=== PATIENT | female | born 1970 | race Caucasian/White ===

== ENCOUNTER 2017-04-03 14:48 | Emergency (ER) | payer BC ==
[2017-04-03 15:31] VITALS: BP 147/103
--- NOTE | 2017-04-03 15:35 | UC ---
Eye Complaint HPI - HPI Summary HPI Summary: 46 year old female with eye complaint. 3 days ago she started feeling like her eye lashes were itching. then the eyes were watering. she woke up this morning and her eyes were both red. the left eye is significantly more swollen and red. she denies loss or change in vision. [ End ] - History of Current Complaint Stated Complaint: EYE ITCHY/SWOLLEN Time Seen by Provider: 04/03/17 15:30 Hx Obtained From: Patient Hx Last Menstrual Period: 6-7 yrs ablation Timing: Constant Associated Signs And Symptoms: Positive: Drainage (Clear), Swelling Related History: Similar Episode - Risk Factors Acute Glaucoma Risk Factors: Negative - Allergies/Home Medications Allergies/Adverse Reactions: Allergies Allergy/AdvReac Type Severity Reaction Status Date / Time Pollen Extract Allergy Unknown Unknown Verified 04/03/17 15:31 Reaction Details Azithromycin Allergy Rash Verified 04/03/17 15:31 dogs, cats Allergy Eyes Uncoded 04/03/17 15:31 Itchy/Swollen/Red/Watery Home Medications: Home Medications Albuterol HFA INHALER* [Ventolin HFA Inhaler*] 2 puff INH Q4H PRN 04/03/17 [ History Confirmed 04/03/17] Verapamil TAB* [Calan TAB*] 120 mg PO DAILY 04/03/17 [History Confirmed 04/03/17 ] hydrOXYzine HCL TAB* [Atarax 25 MG TAB*] 25 mg PO QID PRN 04/03/17 [History Confirmed 04/03/17] PMH/Surg Hx/FS Hx/Imm Hx Previously Healthy: Yes Endocrine History: Diabetes, Dyslipidemia Respiratory History: Other - seasonal allergy Other Respiratory History: seasonal allergy and idiopathic urticaria - Surgical History Surgical History: Yes Surgery Procedure, Year, and Place: uterine ablation - Family History Known Family History: Positive: None - Social History Occupation: Employed Full-time Lives: With Family Alcohol Use: Occasionally Substance Use Type: None Smoking Status (MU): Former Smoker Review of Systems Skin: Other - urticaria Eyes: Blurred Vision, Eye Redness All Other Systems Reviewed And Are Negative: Yes Physical Exam Triage Information Reviewed: Yes Appearance: Well-Appearing, No Pain Distress, Well-Nourished Vital Signs Reviewed: Yes Eye Exam: Normal Eyes: Positive: Other: - left eye with mild injection clear discharge > right eye. no phootophobia. ENT Exam: Normal Neck: Positive: 1 Respiratory Exam: Normal Cardiovascular Exam: Normal Musculoskeletal Exam: Normal Neurological Exam: Normal Psychological Exam: Normal Skin Exam: Normal Skin: Positive: Other - urticaria inferior to the left eye from the orbit to the maxillary cheek bone . no pain with eye movement. no induration around the eye. no streaking. Eye Complaint Course/Dx - Course Course Of Treatment: Pt has had this is in the past and went to derm and has idiopathic urticaria and received steroids by mouth and it worked well. At this time try to use just the drops for a few days and if the itch and swelling not improved then start the medrol. she will f/u with PCp and concsider derm / optho as well. - Differential Dx/Diagnosis Differential Diagnosis/HQI/PQRI: Conjunctivitis, Corneal Abrasion Provider Diagnoses: Allergic conjunctivitis / idiopathic urticaria Discharge - Discharge Plan Condition: Good Disposition: HOME Prescriptions: Azelastine 0.05% (OPHTH)(NF) [Optivar 0.05% (NF)] 1 drop BOTH EYES BID #1 btl Methylprednisolone [Medrol Dosepak 4 MG*] 0 mg PO .SEE GISEL INSTRUCTION #1 tab Patient Education Materials: Urticaria (ED) Referrals: Ld Carter MD [Primary Care Provider] - 4 Days
== END 2017-04-03 16:17 | disposition home or self-care (01) ==
LOC: UCCORT 14:48
DX: H10.33 Unspecified acute conjunctivitis, bilateral (principal); L50.1 Idiopathic urticaria; E11.9 Type 2 diabetes mellitus without complications; E78.5 Hyperlipidemia, unspecified; Z88.1 Allergy status to other antibiotic agents; Z87.891 Personal history of nicotine dependence
CPT/HCPCS: 99212; G0463

== ENCOUNTER 2018-01-04 09:03 | Emergency (ER) | payer BC ==
[2018-01-04 09:29] VITALS: BP 144/87
--- NOTE | 2018-01-04 09:53 | UC ---
Dental HPI - HPI Summary HPI Summary: History of dental decay and fractures, due to not seeking dental care since experience of traumatic wisdom teeth extraction. No particular concern until sudden onset of right facial pain and swelling which began yesterday. - History of Current Complaint Chief Complaint: UCDentalProblem Stated Complaint: ORAL COMPLAINT Time Seen by Provider: 01/04/18 09:39 Hx Obtained From: Patient Hx Last Menstrual Period: s/p ablation ?: No Onset/Duration: Sudden Onset, Lasting Days - 1 Severity: Severe Pain Intensity: 8 Aggravating Factor(s): Cold, Chewing Alleviating Factor(s): OTC Meds - using acetaminophen at max dose of 3000/day in addition to meloxicam. Related History: Swelling - Allergies/Home Medications Allergies/Adverse Reactions: Allergies Allergy/AdvReac Type Severity Reaction Status Date / Time azithromycin Allergy Rash Verified 01/04/18 09:23 Home Medications: Home Medications Acetaminophen [Acetaminophen Extra Strength] 1,000 mg PO Q6H PRN 01/04/18 [ History Confirmed 01/04/18] Albuterol HFA INHALER* [Ventolin HFA Inhaler*] 1 - 2 puff INH Q4H PRN 01/04/18 [ History Confirmed 01/04/18] Atorvastatin* [Lipitor*] 20 mg PO DAILY 01/04/18 [History Confirmed 01/04/18] Canagliflozin (NF) [Invokana (NF)] 300 mg PO DAILY 01/04/18 [History Confirmed 01/04/18] Fluticasone HFA 220 mcg(NF) [Flovent HFA 220 Mcg(NF)] 2 puff INH BID PRN [History Confirmed 01/04/18] Icosapent Ethyl [Vascepa] 2 gm PO BID 01/04/18 [History Confirmed 01/04/18] LoraTADine TAB(NF) [Claritin 10 MG TAB(NF)] 10 mg PO DAILY 01/04/18 [History Confirmed 01/04/18] Meloxicam(NF) [Mobic(NF)] 15 mg PO DAILY 01/04/18 [History Confirmed 01/04/18] Pantoprazole TAB (NF) [Protonix TAB (NF)] 40 mg PO DAILY 01/04/18 [History Confirmed 01/04/18] Verapamil SR CAP* [Calan Sr CAP*] 180 mg PO DAILY 01/04/18 [History Confirmed ] metFORMIN* [Glucophage 1000 MG TAB *] 1,000 mg PO BID 01/04/18 [History Confirmed 01/04/18] PMH/Surg Hx/FS Hx/Imm Hx Endocrine History: Diabetes Cardiovascular History: Hypertension GI/ History: Gastroesophageal Reflux - Surgical History Surgical History: Yes Surgery Procedure, Year, and Place: Uterine Ablation, ~2009, [place] - Family History Known Family History: Positive: Diabetes - maternal uncle. - Social History Occupation: Employed Full-time Alcohol Use: Occasionally Substance Use Type: None Smoking Status (MU): Former Smoker Length of Time of Smoking/Using Tobacco: 1 - 1 1/2 PPD x 20 Years When Did the Patient Quit Smoking/Using Tobacco: ~2004 Review of Systems Constitutional: Fatigue - could not sleep due to ji, Other - Has not been checking blood sugars. ENT: Dental Pain Is Patient Immunocompromised?: No All Other Systems Reviewed And Are Negative: Yes Physical Exam Triage Information Reviewed: Yes Appearance: Well-Appearing, Pain Distress - moderate. Vital Signs: Initial Vital Signs Temp 98 F 01/04/18 09:21 Pulse 99 01/04/18 09:21 Resp 16 01/04/18 09:21 BP 144/87 01/04/18 09:21 Pulse Ox 99 01/04/18 09:21 Vital Signs Reviewed: Yes Eye Exam: Normal, Other - no photophobia, full rom both eyes. ENT: Positive: Pharynx normal Dental: Positive: Gross Decay/Caries @, Dental Fracture @, Abscess @ Dental Complaint Course/Dx - Course Course Of Treatment: penVK and pain control. Advised needs dental intervention PETRA. FEATURES REPORTER search # [id number] - Differential Dx/Diagnosis Differential Diagnosis/Dx: Dental Abscess, Dental Caries, Fractured Tooth, Gingivitis Provider Diagnoses: dental abscess #2 Discharge - Sign-Out/Discharge Documenting (check all that apply): Discharge/Admit/Transfer - Discharge Plan Condition: Stable Disposition: HOME Prescriptions: Hydrocodone/Acetaminophen [Hydrocodone-Acetamin 5-325 mg] 2 tab PO BID PRN #15 tablet MDD 4 PRN Reason: Pain (Dental) Penicillin VK 500 MG TAB(NF) [Penicillin VK 500 mg Tab] 500 mg PO QID #40 tab Patient Education Materials: Dental Abscess (ED) Referrals: Ld Carter MD [Primary Care Provider] - Additional Instructions: Begin penicillin for treatment of abscess. It is essential that you schedule dental follow up, because this is a short term measure only and your teeth need care. You have a prescription for hydrocodone. This contains acetaminophen, so adjust your acetaminophen to account for this. Maximum daily dose of acetaminophen is 3000mg. - Billing Disposition and Condition Condition: STABLE Disposition: HOME Images Dental: 1 - fracture, deep decay, associated abscess.
== END 2018-01-04 10:11 | disposition home or self-care (01) ==
LOC: UCCORT 09:03
DX: K04.7 Periapical abscess without sinus (principal); Z88.1 Allergy status to other antibiotic agents; E11.9 Type 2 diabetes mellitus without complications; I10 Essential (primary) hypertension; Z79.84 Long term (current) use of oral hypoglycemic drugs; K21.9 Gastro-esophageal reflux disease without esophagitis; Z87.891 Personal history of nicotine dependence
CPT/HCPCS: 99213; G0463

== ENCOUNTER 2018-03-09 16:26 | Inpatient (IN) | payer BC ==
[2018-03-09] MEDS: NS 0.9% 1000 ML* 2,000 ML IV ONE ×2 (16:56→19:16)
--- NOTE | 2018-03-09 16:57 | RAD ---
Indication: Hyperglycemia. Single frontal view of the chest performed at 1642 hours was reviewed. No prior study is available for comparison. No mediastinal shift is noted. Heart is of normal size and configuration. Minimal atelectasis is noted in the left lung base. IMPRESSION: NO ACTIVE CARDIOPULMONARY DISEASE IS NOTED.
--- NOTE | 2018-03-09 17:11 | ED ---
HPI Diabetic - HPI Summary HPI Summary: This is earl Barbour documenting for attending Roman Lee MD. Patient is a 47 y/o F w/ c/o high BG at 303. Patient is a type II diabetic diagnosed 5-6 years ago. Last week, patient felt nauseous and was vomiting. She states she went to [facility] and was admitted for DKA. She was discharged two days ago. She states she was given an IV insulin drip but did not receive insulin upon discharge. Patient claims she takes only oral medications and no insulin. She reports not feeling better after discharge and went to her PCP today. BP levels were measured to be 303 at PCP's office and she was sent to [facility]. She states she feels thirsty but does not note this to be abnormal. Patient reports increased frequency of urination and lack of appetite. She claims she has lost 12-14 lbs in past week. On triage, pain is denied and nothing is noted to aggravate/alleviate Sx. Home medications and allergies are reviewed. - History Of Current Complaint Chief Complaint: EDDiabeticProb Time Seen by Provider: 03/09/18 16:34 Hx Obtained From: Patient Hx Last Menstrual Period: s/p ablation Onset/Duration: Lasting Weeks - onset last week Timing: Constant Severity Currently: None - pain is denied Character: Alert Aggravating: Nothing Alleviating: Nothing Associated Signs & Symptoms: Nausea, Vomiting - Allergies/Home Medications Allergies/Adverse Reactions: Allergies Allergy/AdvReac Type Severity Reaction Status Date / Time azithromycin Allergy Rash Verified 03/09/18 17:12 Home Medications: Home Medications Famotidine 40 mg PO BID 03/09/18 [History Confirmed 03/09/18] Losartan/Hydrochlorothiazide [Losartan Potassium/Hydroc 100-25 mg] 1 tab PO DAILY 03/09/18 [History Confirmed 03/09/18] Metoprolol Tartrate TAB* [Lopressor TAB*] 25 mg PO BID 03/09/18 [History Confirmed 03/09/18] Nystatin/Triamcin [Nystatin-Triamcinolone Ointm] 1 applic TOPICAL TID 03/09/18 [ History Confirmed 03/09/18] glipiZIDE [Glipizide] 10 mg PO DAILY 03/09/18 [History Confirmed 03/09/18] PMH/Surg Hx/FS Hx/Imm Hx Endocrine/Hematology History: Reports: Hx Diabetes Cardiovascular History: Reports: Hx Hypertension Sensory History: Denies: Hx Legally Blind - Surgical History Surgery Procedure, Year, and Place: Uterine Ablation, ~2009, [place] Infectious Disease History: No Infectious Disease History: Denies: Traveled Outside the [place] in Last 30 Days - Family History Known Family History: Positive: Diabetes - maternal uncle. - Social History Alcohol Use: Occasionally Substance Use Type: Reports: None Smoking Status (MU): Former Smoker Length of Time of Smoking/Using Tobacco: 1 - 1 1/2 PPD x 20 Years Review of Systems Positive: Other - lost 12-14 lbs in past week Positive: Vomiting, Nausea, Other - decreased appetite Positive: frequency - increased urination All Other Systems Reviewed And Are Negative: Yes Physical Exam - Summary Physical Exam Summary: VITAL SIGNS: Reviewed. GENERAL: Patient is a well-developed and nourished female who is lying comfortable in the stretcher. Patient is not in any acute respiratory distress. HEAD AND FACE: No signs of trauma. No ecchymosis, hematomas or skull depressions. No sinus tenderness. EYES: PERRLA, EOMI x 2, No injected conjunctiva, no nystagmus. EARS: Hearing grossly intact. Ear canals and tympanic membranes are within normal limits. MOUTH: Oropharynx within normal limits. Dry mouth is noted. NECK: Supple, trachea is midline, no adenopathy, no JVD, no carotid bruit, no c- spine tenderness, neck with full ROM. CHEST: Symmetric, no tenderness at palpation LUNGS: Clear to auscultation bilaterally. No wheezing or crackles. CVS: Regular rate and rhythm, S1 and S2 present, no murmurs or gallops appreciated. ABDOMEN: Soft, non-tender. No signs of distention. No rebound no guarding, and no masses palpated. Bowel sounds are normal. EXTREMITIES: FROM in all major joints, no edema, no cyanosis or clubbing. NEURO: Alert and oriented x 3. No acute neurological deficits. Speech is normal and follows commands. SKIN: Dry and warm Triage Information Reviewed: Yes Vital Signs On Initial Exam: Initial Vitals Temp Pulse Resp BP Pulse Ox 96.8 F 130 16 95/78 99 03/09/18 16:28 03/09/18 16:28 03/09/18 16:28 07/30/18 16:28 03/09/18 16:28 Vital Signs Reviewed: Yes Diagnostics - Vital Signs Vital Signs Temp Pulse Resp BP Pulse Ox 03/09/18 16:28 96.8 F 130 16 95/78 99 - Laboratory Result Diagrams: 03/09/18 17:01 03/10/18 04:15 Lab Statement: Any lab studies that have been ordered have been reviewed, and results considered in the medical decision making process. - Radiology CXR Xray Interpretation: No Acute Changes Radiology Interpretation Completed By: Radiologist - No active cardiopulmonary disease is noted. This report is reviewed by ED physician. Diabetic Course/Dx - Course Assessment/Plan: Patient is a 47 y/o F w/ c/o high BG at 303. Patient is a type II diabetic diagnosed 5-6 years ago. Last week, patient felt nauseous and was vomiting. She states she went to [facility] and was admitted for DKA. She was discharged two days ago. She states she was given an IV insulin drip but did not receive insulin upon discharge. Patient claims she takes only oral medications and no insulin. She reports not feeling better after discharge and went to her PCP today. BP levels were measured to be 303 at PCP's office and she was sent to [facility]. She states she feels thirsty but does not note this to be abnormal. Patient reports increased frequency of urination and lack of appetite. She claims she has lost 12-14 lbs in past week. On triage, pain is denied and nothing is noted to aggravate/alleviate Sx. Home medications and allergies are reviewed. Blood test results without any significant abnormality except for what was a count of 13, hemoglobin 17.5, hematocrit of 51 which may be due to the patient has hemoconcentration. Sodium is 129, carbon dioxide is 15 , anion gap is 21, BUNs 25 and creatinine 1.19. The glucose is 429. This is significant for DKA. Patient was given 2 L of IV fluids and the patient was placed in an insulin drip. The patient continued to be hemodynamically stable. I discussed the case with Dr. Renteria from the hospitalist services and he agreed to admit the patient to the ICU services. Patient is alert and oriented 3. - Diagnoses Differential Dx: Diabetic Ketoacidosis, Hyperglycemia, Hyperosmolar State Provider Diagnoses: DKA (diabetic ketoacidoses) - Physician Notifications Discussed Care Of Patient With: Nathan Renteria Time Discussed With Above Provider: 18:42 Instructed by Provider To: Other - Dr. Renteria was consulted on the patient's case at 18:42. Dr. Renteria agrees to admit patient to [facility]. - Critical Care Time Critical Care Time: 75-104 min Discharge - Sign-Out/Discharge Documenting (check all that apply): Patient Departure - admit - Discharge Plan Condition: Good Disposition: ADMITTED TO [facility] - Billing Disposition and Condition Condition: GOOD Disposition: Admitted to [facility]
[2018-03-09 17:12] LABS: ABS Basophils 0 10^3/ul (0-0.2); ABS Eosinophils 0 10^3/ul (0-0.6); ABS Lymphocytes 2.1 10^3/ul (1.0-4.8); ABS Monocytes 1.3 10^3/ul (0-0.8); ABS Neutrophils 9.5 10^3/ul (1.5-7.7); ABS Nucleated RBC 0 10^3/ul; Eosinophil % 0.2 % (0-6); Hematocrit 51 % (35-47); Hemoglobin 17.5 g/dl (12.0-16.0); Lymphocyte % 16.3 % (25-47); Mean Corpuscular HGB Conc 34 g/dl (31-36); Mean Corpuscular Hemoglobin 32 pg (27-31); Mean Corpuscular Volume 92 fL (80-97); Mean Platelet Volume 7.1 um3 (7.4-10.4); Nucleated Red Blood Cells % 0.1; Platelet Count 408 10^3/ul (150-450); Red Blood Count 5.51 10^6/ul (4.00-5.40); Red Cell Distribution Width 15 % (10.5-15)
[2018-03-09 17:28] LABS: EGFR Non-African American 49.1 (>60)
[2018-03-09] MEDS ORDERED: Insulin IVPB 100 units/100 ml 100 UNITS/100 ML UNIT IVPB ONE ×2 (18:18→20:17)
[2018-03-09 20:31] LABS: EGFR Non-African American 64.4 (>60)
[2018-03-09] MEDS ORDERED: NS 0.9% w/ 20 Meq KCL 1000 ML* 1,000 ML IV SCH (21:00)
[2018-03-09] MEDS ORDERED: Metoprolol Tartrate TAB* 25 MG PO SCH (21:00)
[2018-03-09] MEDS: Famotidine TAB* 20 MG PO SCH (21:02)
[2018-03-09] MEDS: D5W 1/2 NS KCl 20 Meq 1000 ML* 1,000 ML IV SCH (21:04)
[2018-03-09 21:23] LABS: Urine Appearance Cloudy; Urine Blood 1+ (Negative); Urine Color Straw; Urine Ketones 1+ (Negative); Urine Protein Negative (Negative); Urine Red Blood Cell 1+(3-5/hpf) (Absent); Urine Specific Gravity 1.015 (1.010-1.030); Urine Urobilinogen Negative (Negative); Urine White Blood Cell 2+(11-20/hpf) (Absent)
--- NOTE | 2018-03-09 22:07 | HP ---
HISTORY AND PHYSICAL: DATE OF ADMISSION: 03/09/18. PROVIDER: Eitan Hernadez NP. ATTENDING PHYSICIAN: Dr. Cleary (report dictated by Eitan Hernadez NP). DICTATION ENDS HERE EITAN HERNADEZ NP [id number]/[facility] #: [id number] MTDD
[2018-03-09] MEDS: Heparin VIAL(*) 5000 UNITS/ML VIAL (FIVE THOUSAND) SUBCUT SCH (23:15)
[2018-03-10] MEDS ORDERED: Magnesium Sulfate 1 GM IV* 1 GM/100 ML BAG IV ONE (00:34)
--- NOTE | 2018-03-10 00:48 | HP ---
CC: Dr. Carter * HISTORY AND PHYSICAL: DATE OF ADMISSION: 03/09/18 PROVIDER: Eitan Hernadez NP ATTENDING PHYSICIAN: Dr. Cleary * (report dictated by Eitan Hernadez NP) PRIMARY CARE PROVIDER: Dr. Carter CHIEF COMPLAINT: Hyperglycemia and weakness. HISTORY OF PRESENT ILLNESS: Ms. Hilton is a 47-year-old female with a past medical history of obesity, non-insulin dependent type 2 diabetes, hypertension , and GERD, who presents to the emergency department today from her primary care provider's office for concern for hyperglycemia and weakness. The patient reports that she was recently hospitalized this past week in hospital for DKA in which she was hospitalized on last , 03/05 and was discharged on Friday, 03/07 and reports that she was treated for DKA with IV insulin. The patient reports prior to that hospitalization on 03/04, she began to feel unwell and developed acute intractable nausea and vomiting and felt so weak the next day she went to the emergency department. She initially thought she had a viral gastroenteritis. She denied abdominal pain or diarrhea. No fevers or chills. She reports that her symptoms improved during that hospitalization; however, at discharge she still did not feel 100% and reports she continued to have "fruity breath" and had some mild continued weakness that she reports worsened when she got home. She reports that she was also found to be quite hypertensive throughout that hospitalization. She reports there was no infection identified at [facility] and it was unknown what precipitated the DKA. She denies any recent fever/chills, denies any URI symptoms, denies urinary symptoms. The records from discharge from [facility] showing she was discharged with a white blood cell count to 17, CRP of 14 as well as discharge blood pressure of 180/100, it is also noted she had 2 sets of blood cultures that had no growth. Today, in the emergency department, the patient reports she doesnt feel as bad as she did when she presented to [facility] initially. In the emergency department today it is noted she has an increased anion gap of 21, blood glucose of 430, and noted to be acidotic per VBG. She was started on insulin drip and given 2 L of normal saline in the emergency department so far. On evaluation in the emergency department, the patient appears to be comfortable, alert and oriented x3, in no acute distress. She reports she already feels better since arrival to the emergency department. The patient reports prior to that her [facility] hospitalization she was at an outdoor car show in the heat, but reports that she drinks plenty of fluids. She denies excessive alcohol use or recreational drug use. She denies a history of DKA in the past. She reports her blood glucometer is broken and doesn't monitor her blood sugars. PAST MEDICAL HISTORY: 1. Non-insulin dependent type 2 diabetes. 2. Hypertension. 3. GERD. 4. Hyperlipidemia. ALLERGIES: AZITHROMYCIN. FAMILY HISTORY: Diabetes in both parents, coronary artery disease in her grandmother, aunt, and uncle. SOCIAL HISTORY: The patient currently lives at home in [place] with her and daughter. She lists her , Jean Hilton, as a healthcare proxy, his number is [phone]. REVIEW OF SYSTEMS: A 14-point review of systems was performed and all the pertinent positives and negatives are mentioned in the history of present illness. Otherwise, they are negative. PHYSICAL EXAMINATION GENERAL APPEARANCE: A 47-year-old female, overweight, in no acute distress. Good historian. VITAL SIGNS: Temperature 99.2, heart rate 102, respirations 20, O2 sat 99% on room air, blood pressure 164/93. HEENT: Head is normocephalic, atraumatic. Pupils are equal and reactive to light. Oropharynx is clear. Moist mucous membranes. NECK: Supple. LUNGS: Clear to auscultation bilaterally. Good aeration throughout. CARDIAC: S1, S2. Regular rate and rhythm. No murmur, rub, or gallop appreciated. ABDOMEN: Soft, nontender, nondistended. Normal bowel sounds throughout. EXTREMITIES: No clubbing, cyanosis, or edema. Moves all extremities equally. Strength is 5/5 throughout. NEURO: Cranial nerves II through XII are grossly intact. No focal deficits noted. PSYCH: Appropriate. LABORATORY DATA AND DIAGNOSTIC STUDIES: WBC is 13.0, RBC 5.51, HGB 17.5, HCT 51, MCV 92, MCH 32, MCHC 34, RDW 15, platelet count 405. Sodium 129, potassium 3.5, chloride 93, carbon dioxide 15, anion gap 21, BUN 25, creatinine 1.19, glucose 429. Calcium 9.8, phosphorous 4.6, magnesium 2.1, total bilirubin 1.00, AST 40, ALT 42, alkaline phosphatase 42. Total creatinine kinase 81, C- reactive protein 8.03. Total protein 7.8. Albumin 4.6. Serum alcohol less than 10. Chest x-ray, impression, "no active cardiopulmonary disease is noted." ASSESSMENT AND PLAN: Ms. Hilton is a 47-year-old female with a past medical history of non-insulin dependent type 2 diabetes, hypertension, gastroesophageal reflux disease, obesity, hyperlipidemia, who presents today from her primary care provider's office for hyperglycemia with a recent hospitalization at [facility] for diabetic ketoacidosis, who presented today from her primary care provider's office for concern for hyperglycemia and weakness found to be in diabetic ketoacidosis. 1. Diabetic ketoacidosis. The patient is in mild diabetic ketoacidosis. Repeat labs just returned showing an improvement in her anion gap, which is now down to 16. Insulin drip was started around 1700 and repeat glucose now down to 130. Her insulin was decreased from 8 units an hour down to 2 units an hour and she was started on D5W with half normal saline with 20 of KCl at 200 mL an hour. Will continue q.4 hours BMPs. She will continue fingerstick blood glucose q.1 hour. The patient is clinically stable and feeling better. It is unclear the precipitating factors behind her diabetic ketoacidosis. In review of [facility] records, her hemoglobin A1c is 6.5. There is no obvious source of infection but did have a discharge WBC of 17 and elevated CRP both now trending down. It sound like her nausea and vomiting prior to her [facility] hospitalization was secondary to the DKA but it is possible she had a viral gastroenteritis or food bourne pathogen. Urinalysis is still pending at the time of dictation. Chest x-ray is unremarkable. I have added on a thyroid panel. Per patient, she has an "enlarged thyroid," but denies history of thyroid disease as well as I have ordered a morning cortisol level and an Endocrine consult should be considered tomorrow. Drug screen is still pending at the time of dictation. I have also added on blood cultures. Even though the patient's hemoglobin A1c is only 6.5, it is possible she may need change in her medications and/or be discharged home on insulin and possibly she has been uncontrolled at home since she has not been monitoring. She will need a blood glucometer at discharge. 2. Acute kidney injury, noted elevated creatinine of 1.19, this resolved on second set of labs with IV fluids. 3. Hypertension. We will continue verapamil 180 mg p.o. daily and metoprolol tartrate 25 mg p.o. b.i.d. She is slightly hypertensive, her systolic blood pressure is in the 160s, continue to monitor. 4. Gastroesophageal reflux disease, controlled, continue Pepcid and omeprazole. 5. Hyperlipidemia, continue Lipitor. 6. DVT prophylaxis, heparin subcu. 7. Code status, full code. 8. Hospital status, inpatient ICU. 9. We will try to obtain records from [facility] of her previous hospitalization. This case was discussed with attending physician, Dr. Cleary, who agrees with the plan of care. TIME SPENT: Approximately 90 minutes were spent on this admission. EITAN HERNADEZ, GWENDOLYN [id number]/[facility] #: [id number] ESTER
[2018-03-10] MEDS: KCL 20 MEQ/100 ML IVPREMIX* 20 MEQ/100 ML BAG IV SCH ×2 (02:02→02:58)
[2018-03-10] MEDS: D5W 1/2 NS KCl 20 Meq 1000 ML* 1,000 ML IV SCH ×2 (02:58→10:08)
[2018-03-10 05:13] LABS: EGFR Non-African American 104.1 (>60)
[2018-03-10] MEDS: Heparin VIAL(*) 5000 UNITS/ML VIAL (FIVE THOUSAND) SUBCUT SCH ×3 (06:22→21:32)
[2018-03-10] MEDS ORDERED: Dextrose 50% Syringe 50 ML* 25 GM/50 ML SYRINGE IV PUSH PRN (08:25)
[2018-03-10] MEDS: Verapamil TAB* 120 MG PO SCH ×2 (08:34→17:04)
[2018-03-10] MEDS: Omeprazole CAP* 20 MG PO SCH (08:35)
[2018-03-10] MEDS: Metoprolol Tartrate TAB* 25 MG PO SCH ×2 (08:35→21:32)
[2018-03-10] MEDS: Atorvastatin* 20 MG TAB PO SCH (08:36)
[2018-03-10] MEDS: Famotidine TAB* 20 MG PO SCH (08:36)
[2018-03-10] MEDS ORDERED: Potassium Chlor TAB* 20 MEQ TAB.ER PO STA (08:43)
[2018-03-10] MEDS: Insulin GLARGINE(*) 1 UNITS UNIT SUBCUT SCH (08:51)
[2018-03-10] MEDS ORDERED: Verapamil SR CAP* 180 MG PO SCH (09:00)
[2018-03-10] MEDS ORDERED: Potassium Chloride LIQUID* 20 MEQ PACKET PO STA (09:05)
[2018-03-10 10:06] LABS: Urine Appearance Clear; Urine Blood Negative (Negative); Urine Color Straw; Urine Ketones 1+ (Negative); Urine Protein Negative (Negative); Urine Red Blood Cell Trace(0-2/hpf) (Absent); Urine Specific Gravity 1.008 (1.010-1.030); Urine Urobilinogen Negative (Negative); Urine White Blood Cell 1+(6-10/hpf) (Absent)
[2018-03-10] MEDS: Insulin LISPRO* 1 UNITS UNIT SUBCUT SCH ×2 (11:48→17:05)
[2018-03-10] MEDS: hydrALAZINE IV* 20 MG/ML VIAL IV SLOW PU PRN (14:17)
[2018-03-10] MEDS: cefTRIAXone(*) 1 GM in NS 0.9% 50 ML* 50 ML IVPB SCH (15:04)
[2018-03-10] MEDS ORDERED: NS 0.9% 500 ML* 500 ML IV ONE (16:52)
[2018-03-10 17:52] LABS: ABS Basophils 0 10^3/ul (0-0.2); ABS Eosinophils 0.1 10^3/ul (0-0.6); ABS Lymphocytes 2.3 10^3/ul (1.0-4.8); ABS Monocytes 0.8 10^3/ul (0-0.8); ABS Neutrophils 4.8 10^3/ul (1.5-7.7); ABS Nucleated RBC 0 10^3/ul; Eosinophil % 0.7 % (0-6); Hematocrit 38 % (35-47); Lymphocyte % 29.1 % (25-47); Mean Corpuscular HGB Conc 34 g/dl (31-36); Mean Corpuscular Hemoglobin 32 pg (27-31); Mean Corpuscular Volume 92 fL (80-97); Mean Platelet Volume 7.4 um3 (7.4-10.4); Nucleated Red Blood Cells % 0; Platelet Count 218 10^3/ul (150-450); Red Blood Count 4.09 10^6/ul (4.00-5.40); Red Cell Distribution Width 14 % (10.5-15)
[2018-03-10 18:14] LABS: EGFR Non-African American 163.2 (>60)
--- NOTE | 2018-03-10 19:34 | PN ---
Subjective Date of Service: 03/10/18 Interval History: Pt seen and examined. Meds and labs reviewed ROS: Denied BOWIE/dizziness, F/C, N/V, CP, SOB, increased cough, sputum production , abd pain, diarrhea, constipation, dysuria, myalgias, arthralgias, throat pain , and new skin lesions. The rest of the 14 point ROS are unremarkable. PHYSICAL EXAM: GEN APPEARANCE: Awake, not in acute distress HEENT: NC/AT, PERRLA, moist oral mucosa, (-) throat erythema NECK: Soft, supple, (-) cervical LAD, (-)JVD HEART: S1S2 WNL, RRR, No MRG CHEST: CTA, BL, GAE, No W/R/R ABD: Soft, ND/NT, NABS 4x Q EXT: No C/C/E SKIN: Warm to touch PSYCH: No active psychosis, hallucinations, depression, SI/HI Objective Active Medications: Atorvastatin Calcium (Lipitor*) 20 mg PO DAILY [facility] Last Admin: 03/10/18 08:36 Dose: 20 mg Dextrose (D50w Syringe 50 Ml*) 12.5 gm IV PUSH .FOR FS < 60 - SS PRN PRN Reason: FS < 60 Heparin Sodium (Porcine) (Heparin Vial(*)) 5,000 units SUBCUT Q8HR [facility] Last Admin: 03/10/18 14:17 Dose: 5,000 units Hydralazine HCl (Apresoline Iv*) 10 mg IV SLOW PU Q6H PRN PRN Reason: BLOOD PRESSURE Last Admin: 03/10/18 14:17 Dose: 10 mg Insulin Human Regular (Insulin Regular Ivpb) 100 units in 100 mls @ 1.696 mls/ hr IVPB PER RATE ONE Stop: 03/12/18 05:15 Last Admin: 03/09/18 20:15 Dose: 1.696 mls/hr Ceftriaxone Sodium 1 gm/ (Sodium Chloride) 50 mls @ 200 mls/hr IVPB Q24H [facility] Last Admin: 03/10/18 15:04 Dose: 200 mls/hr Insulin Glargine (Lantus(*)) 28 units SUBCUT Q24H [facility] Last Admin: 03/10/18 08:51 Dose: 28 unit Insulin Human Lispro (Humalog*) 9 units SUBCUT AC [facility] Last Admin: 03/10/18 17:05 Dose: 9 units Metoprolol Tartrate (Lopressor Tab*) 37.5 mg PO BID [facility] Last Admin: 03/10/18 08:35 Dose: 37.5 mg Omeprazole (Prilosec Cap*) 20 mg PO DAILY [facility] Last Admin: 03/10/18 08:35 Dose: 20 mg Potassium Phos/Sodium Phos (Neutra Phos 250 Mg [place]*) 250 mg PO BID [facility] Stop: 03/11/18 09:01 Verapamil HCl (Calan Tab*) 120 mg PO DAILY [facility] Last Admin: 03/10/18 08:34 Dose: 120 mg Verapamil HCl (Calan Tab*) 60 mg PO 1600 [facility] Last Admin: 03/10/18 17:04 Dose: 60 mg Vital Signs - 8 hr 03/10/18 03/10/18 03/10/18 12:00 13:00 13:35 Temperature 99.5 F Pulse Rate 88 105 97 Respiratory 25 19 24 Rate Blood Pressure 152/105 146/114 144/102 (mmHg) O2 Sat by Pulse 95 97 96 Oximetry 03/10/18 03/10/18 03/10/18 13:59 14:00 14:55 Temperature 97.7 F Pulse Rate 93 114 Respiratory 20 29 20 Rate Blood Pressure 148/112 148/73 (mmHg) O2 Sat by Pulse 96 99 Oximetry 03/10/18 15:57 Temperature 97.7 F Pulse Rate 114 Respiratory 20 Rate Blood Pressure 148/73 (mmHg) O2 Sat by Pulse 99 Oximetry Oxygen Devices in Use Now: None Result Diagrams: 03/10/18 17:40 03/10/18 19:03 Microbiology and Other Data: Microbiology 03/09/18 20:54 Urine Culture - Final Urine No Growth (<1,000 CFU/mL) 03/10/18 05:34 Nasal Screen MRSA (PCR) - Final Nasal Mrsa Not Detected Assess/Plan/Problems-Billing Assessment: - Patient Problems (1) DKA (diabetic ketoacidoses) Current Visit: Yes Status: Acute Code(s): E13.10 - OTH DIABETES MELLITUS WITH KETOACIDOSIS WITHOUT COMA SNOMED Code(s): 183440832 Comment: -Resolved -Transitioned successfully to SQ insulin -Transferred to floors -Continue FS qACHS (2) Hypertension Current Visit: Yes Status: Acute Code(s): I10 - ESSENTIAL (PRIMARY) HYPERTENSION SNOMED Code(s): 02126593 Comment: -Continue Verapamil and Metoprolol -Will place pt on PRN Hydralazine (3) GERD (gastroesophageal reflux disease) Current Visit: Yes Status: Acute Code(s): K21.9 - GASTRO-ESOPHAGEAL REFLUX DISEASE WITHOUT ESOPHAGITIS SNOMED Code(s): 582265439 Comment: -Continue Omeprazole and will D/C Famodidine (4) Hyperlipidemia Current Visit: Yes Status: Acute Code(s): E78.5 - HYPERLIPIDEMIA, UNSPECIFIED SNOMED Code(s): 80951804 Comment: -Continue Atorvastatin Status and Disposition: -For PT eval
[2018-03-10] MEDS: Potassium & Sodium Phos 250MG* = 1 PACKET PO SCH (21:31)
[2018-03-11] MEDS: Heparin VIAL(*) 5000 UNITS/ML VIAL (FIVE THOUSAND) SUBCUT SCH ×3 (05:42→20:49)
[2018-03-11] MEDS ORDERED: Potassium Chloride LIQUID* 20 MEQ PACKET PO ONE (07:44)
[2018-03-11 07:48] LABS: Hematocrit 47 % (35-47); Hemoglobin 15.9 g/dl (12.0-16.0); Mean Corpuscular HGB Conc 34 g/dl (31-36); Mean Corpuscular Hemoglobin 32 pg (27-31); Mean Corpuscular Volume 93 fL (80-97); Mean Platelet Volume 7.5 um3 (7.4-10.4); Platelet Count 288 10^3/ul (150-450); Red Blood Count 5.03 10^6/ul (4.00-5.40); Red Cell Distribution Width 14 % (10.5-15); White Blood Count 7.5 10^3/ul (3.5-10.8)
[2018-03-11 08:17] LABS: EGFR Non-African American 139.9 (>60)
[2018-03-11] MEDS: Potassium & Sodium Phos 250MG* = 1 PACKET PO SCH (08:47)
[2018-03-11] MEDS: Metoprolol Tartrate TAB* 25 MG PO SCH ×2 (08:48→20:51)
[2018-03-11] MEDS: Omeprazole CAP* 20 MG PO SCH (08:49)
[2018-03-11] MEDS: Verapamil TAB* 120 MG PO SCH ×2 (08:49→16:23)
[2018-03-11] MEDS: Insulin GLARGINE(*) 1 UNITS UNIT SUBCUT SCH (08:50)
[2018-03-11] MEDS: Insulin LISPRO* 1 UNITS UNIT SUBCUT SCH ×5 (08:51→21:38)
[2018-03-11] MEDS: Atorvastatin* 20 MG TAB PO SCH (08:53)
[2018-03-11] MEDS: cefTRIAXone(*) 1 GM in NS 0.9% 50 ML* 50 ML IVPB SCH (13:29)
[2018-03-11] MEDS ORDERED: cefTRIAXone(*) 1 GM in NS 0.9% 50 ML* 50 ML IVPB SCH (14:00)
--- NOTE | 2018-03-11 17:49 | PN ---
Subjective Date of Service: 03/11/18 Interval History: Patient continues to feel drained. Denies CP, SOB, N/V, abdominal pain, diarrhea , F/C, dysuria, dizziness, or other pain. Patient feels significant palpitations when standing but does not feel dizzy. Family History: Unchanged from Admission Social History: Unchanged from Admission Past Medical History: Unchanged from Admission Objective Active Medications: Atorvastatin Calcium (Lipitor*) 20 mg PO DAILY [facility] Last Admin: 03/11/18 08:53 Dose: 20 mg Dextrose (D50w Syringe 50 Ml*) 12.5 gm IV PUSH .FOR FS < 60 - SS PRN PRN Reason: FS < 60 Heparin Sodium (Porcine) (Heparin Vial(*)) 5,000 units SUBCUT Q8HR [facility] Last Admin: 03/11/18 13:30 Dose: 5,000 units Hydralazine HCl (Apresoline Iv*) 10 mg IV SLOW PU Q6H PRN PRN Reason: BLOOD PRESSURE Last Admin: 03/10/18 14:17 Dose: 10 mg Ceftriaxone Sodium 1 gm/ (Sodium Chloride) 50 mls @ 200 mls/hr IVPB Q24H [facility] Last Admin: 03/11/18 14:55 Dose: Not Given Lactated Ringer's (Lactated Ringers 1000 Ml Bag*) 1,000 mls @ 75 mls/hr IV PER RATE [facility] Insulin Glargine (Lantus(*)) 28 units SUBCUT Q24H [facility] Last Admin: 03/11/18 08:50 Dose: 28 unit Insulin Human Lispro (Humalog*) 0 units SUBCUT AC [facility]; Protocol Last Admin: 03/11/18 16:33 Dose: 3 units Metoprolol Tartrate (Lopressor Tab*) 37.5 mg PO BID [facility] Last Admin: 03/11/18 08:48 Dose: 37.5 mg Omeprazole (Prilosec Cap*) 20 mg PO DAILY [facility] Last Admin: 03/11/18 08:49 Dose: 20 mg Verapamil HCl (Calan Tab*) 120 mg PO DAILY [facility] Last Admin: 03/11/18 08:49 Dose: 120 mg Verapamil HCl (Calan Tab*) 60 mg PO 1600 [facility] Last Admin: 03/11/18 16:23 Dose: 60 mg Oxygen Devices in Use Now: None Appearance: Patient is a 47yo female who appears stated age and is sitting in the bed in NAD. Eyes: No Scleral Icterus, PERRLA Ears/Nose/Mouth/Throat: NL Teeth, Lips, Gums, Clear Oropharnyx, Mucous Membranes Moist Neck: NL Appearance and Movements; NL JVP, Trachea Midline Respiratory: Symmetrical Chest Expansion and Respiratory Effort, Clear to Auscultation Cardiovascular: NL Sounds; No Murmurs; No JVD, RRR, No Edema, - - Mildly tachycardic. Abdominal: NL Sounds; No Tenderness; No Distention, No Hepatosplenomegaly Lymphatic: No Cervical Adenopathy Extremities: No Edema, No Clubbing, Cyanosis Skin: No Rash or Ulcers, No Nodules or Sclerosis Neurological: Alert and Oriented x 3, NL Sensation, NL Muscle Strength and Tone , - - CN II-XII intact. Result Diagrams: 03/11/18 07:11 03/11/18 07:11 Microbiology and Other Data: Microbiology 03/09/18 20:54 Urine Culture - Final Urine No Growth (<1,000 CFU/mL) 03/10/18 05:34 Nasal Screen MRSA (PCR) - Final Nasal Mrsa Not Detected Assess/Plan/Problems-Billing Assessment: Patient is a 47yo female with a PMH for Non-insulin dependent DM, HTN, HLD, who is inpatient for DKA for the second time this month. Patient is improving on subQ insulin and is being evaluated for infection due to the sudden and persistent nature of the patient's complaints. - Patient Problems (1) Full code status Current Visit: Yes Status: Acute Code(s): Z78.9 - OTHER SPECIFIED HEALTH STATUS SNOMED Code(s): 019818689 (2) DKA (diabetic ketoacidoses) Current Visit: Yes Status: Acute Code(s): E13.10 - OTH DIABETES MELLITUS WITH KETOACIDOSIS WITHOUT COMA SNOMED Code(s): 843852651 Comment: Anion gap still slightly elevated. On SQ insulin Continue FS qACHS Continue ceftriaxone for meeting sepsis criteria and unknown provocation for DKA possibly being infectious. Will D/C in AM if procalcitonin negative. Possibly viral gastroenteritis. 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 Continue rate control. Probable dehydration also with DKA, will resume fluids and monitor. (6) Hypertension Current Visit: Yes Status: Acute Code(s): I10 - ESSENTIAL (PRIMARY) HYPERTENSION SNOMED Code(s): 31617100 Comment: Continue Verapamil and Metoprolol Borderline hypertensive. (7) DVT prophylaxis Current Visit: Yes Status: Acute Code(s): UVD5288 - SNOMED Code(s): 929569854 Comment: Heparin SubQ. Status and Disposition: -For PT eval
[2018-03-12] MEDS: Heparin VIAL(*) 5000 UNITS/ML VIAL (FIVE THOUSAND) SUBCUT SCH ×2 (04:47→16:01)
[2018-03-12] MEDS: hydrALAZINE IV* 20 MG/ML VIAL IV SLOW PU PRN (04:47)
[2018-03-12 07:56] LABS: ABS Basophils 0 10^3/ul (0-0.2); ABS Eosinophils 0.3 10^3/ul (0-0.6); ABS Lymphocytes 2.2 10^3/ul (1.0-4.8); ABS Monocytes 0.6 10^3/ul (0-0.8); ABS Neutrophils 4.3 10^3/ul (1.5-7.7); ABS Nucleated RBC 0 10^3/ul; Eosinophil % 3.5 % (0-6); Hematocrit 44 % (35-47); Hemoglobin 15.1 g/dl (12.0-16.0); Lymphocyte % 29.4 % (25-47); Mean Corpuscular HGB Conc 35 g/dl (31-36); Mean Corpuscular Hemoglobin 32 pg (27-31); Mean Corpuscular Volume 91 fL (80-97); Mean Platelet Volume 7.4 um3 (7.4-10.4); Nucleated Red Blood Cells % 0.1; Platelet Count 270 10^3/ul (150-450); Red Blood Count 4.77 10^6/ul (4.00-5.40); Red Cell Distribution Width 14 % (10.5-15); White Blood Count 7.3 10^3/ul (3.5-10.8)
[2018-03-12 08:25] LABS: EGFR Non-African American 150.7 (>60)
[2018-03-12] MEDS: Insulin GLARGINE(*) 1 UNITS UNIT SUBCUT SCH (08:55)
[2018-03-12] MEDS: Insulin LISPRO* 1 UNITS UNIT SUBCUT SCH ×2 (08:56→13:17)
[2018-03-12] MEDS: Omeprazole CAP* 20 MG PO SCH (08:56)
[2018-03-12] MEDS: Metoprolol Tartrate TAB* 25 MG PO SCH (08:57)
[2018-03-12] MEDS: Atorvastatin* 20 MG TAB PO SCH (08:57)
[2018-03-12] MEDS: Verapamil TAB* 120 MG PO SCH (08:57)
[2018-03-12] MEDS ORDERED: amLODIPine TAB* 5 MG PO SCH (09:00)
[2018-03-12 11:25] VITALS: BP 131/84
--- NOTE | 2018-03-13 13:33 | DS ---
CC: Dr. Carter * DISCHARGE SUMMARY: DATE OF ADMISSION: 03/09/18 DATE OF DISCHARGE: 03/12/18 PRIMARY CARE PROVIDER: Dr. Carter. MY ATTENDING WHILE IN THE HOSPITAL: Dr. Claudia Snow.* (DICTATED BY IAN MOREJON) PRIMARY DISCHARGE DIAGNOSES: 1. Diabetic ketoacidosis. 2. Weakness. SECONDARY DISCHARGE DIAGNOSES: 1. Hypertension. 2. Gastroesophageal reflux disease. 3. Hyperlipidemia. STUDIES DONE WHILE IN THE HOSPITAL: Chest x-ray from 03/09/18 read as no active cardiopulmonary disease. Electrocardiogram shows possible ectopic atrial tachycardia, abnormal P-wave morphology, no ST segment abnormalities, prolonged QTc, right bundle branch block pattern, rate of 114. MEDICATIONS AT DISCHARGE: 1. Albuterol inhaler 1 to 2 puffs inhalation q.4 hours as needed. 2. Verapamil SR 180 mg p.o. daily. 3. Pantoprazole 40 mg p.o. daily. 4. Meloxicam 15 mg p.o. daily. 5. Lipitor 20 mg p.o. daily. 6. Vascepa 2 g p.o. b.i.d. 7. Nystatin/triamcinolone 1 application topical t.i.d. 8. Famotidine 40 mg p.o. b.i.d. 9. Amlodipine 5 mg p.o. daily. 10. NovoLog insulin sliding scale. 11. Insulin glargine 28 units subcutaneous daily. 12. Metoprolol tartrate 37.5 mg p.o. b.i.d. Blood test strips, blood glucometer, lancets, pen needles. HOSPITAL COURSE: This is a brief summary of the patient's presentation. For more details, please see history and physical from Maricruz Burks NP on . In brief, the patient is a 47-year-old female with a past medical history significant for the above who presented to the emergency department who after being discharged from [facility] on 03/07/18 after being treated for DKA with IV insulin. The patient stated on 03/04/18, she developed intractable nausea, went to the emergency department, and was diagnosed with viral gastroenteritis. The patient was treated for DKA. These records are not available. The patient upon discharge was sent back home on her previous oral antihyperglycemic medications including Invokana, metformin, and glipizide. The patient felt immediately worse, began to feel weak and nauseated. The patient in the emergency department was started on a insulin drip. Again, was given normal saline. The patient stated that she already felt better. The patient has never had an issue with hyperglycemia or DKA in the past. The patient had a normal cortisol. The patient had an elevated creatinine, which improved with fluids. The patient had an elevated white blood cell count, which decreased quickly to 8.0. The patient on admission had a carbon dioxide of 19, anion gap of 16, potassium 3.3, sodium 134, and blood glucose of 430, which quickly decreased to the 140s on an insulin drip. The patient was continued on insulin and D5 until her anion gap was close. The patient was able after 1 day to be transitioned to subcutaneous insulin. The patient's carbon dioxide increased to normal range on 03/12/18. The patient felt better on 03/11/18 and continued to feel better on 03/12/18. The patient is very anxious about her discharge due to being discharged from [place] too soon. The patient felt relieved when it was discussed that the patient should be discharged on insulin with a glucometer. Upon review of the patient's medications as well as her quick decrease in blood glucose upon arrival to the emergency department and this presentation including repeat DKA in a patient with mildly well-controlled diabetes was deemed to be suspicious for DKA related to her SGLT2 inhibitor. The patient while in the hospital had blood cultures and urine cultures, which were negative and negative chest x-ray as above. The patient was intermittently tachycardic to the 130s, particularly with activity and had tachycardia persistently between 90 and 110 throughout her hospitalization, which she states is her normal. The patient was stable and amenable for discharge on 03/12/18. The patient was continued on ceftriaxone for 2 days during her admission due to grossly positive urinalysis with negative culture, at which time antibiotics were discontinued in conjunction with a negative procalcitonin. PHYSICAL EXAM ON THE DAY OF DISCHARGE: General: The patient is a 47-year-old female, who appears stated age and sitting comfortably in the bed, in no acute distress. Vital Signs: Temperature 99.1, pulse rate 92, respiratory rate 18, oxygen saturation 98% on room air, blood pressure 131/84. HEENT: Head: Normocephalic, atraumatic. Sclerae are anicteric. No conjunctival injection. Nasal mucosa is moist. Oral mucosa moist. No pharyngeal erythema, discharge, or exudate. Neck: Supple, nontender. No lymphadenopathy. No carotid bruits auscultated. JVD. No lymphadenopathy. Cardiac: Tachycardic. No clicks, murmurs, gallops, or rubs. Pulses 2+ in the bilateral dorsalis pedis, posterior tibialis, and radial areas. Genitourinary: No suprapubic or CVA tenderness. Skin: Clean, dry, and intact. No rash. Neuro: Cranial nerves II through XII intact. No focal deficits. Alert and oriented x3. Psychiatric: Pleasant and cooperative. LABORATORY DATA ON THE DAY OF DISCHARGE: White blood cell count 7.3, hemoglobin 15.1, platelet count 270. Sodium 138, potassium 3.4, chloride 102, carbon dioxide 26, anion gap 10, BUN 8, creatinine 0.45, glucose 202, calcium 9.1, magnesium 1.7, procalcitonin less than 0.1. DISCHARGE PLAN: The patient will be discharged to home. The patient will be started on insulin as above. The patient was given instructions on how to inject herself with insulin. No insulin pen was available, however; the patient was instructed should be available through the pharmacy. Prescription for the patient's supplies as needed for glucose monitoring including glucometer, test strips, lancets were sent to her pharmacy as well as pen needles and insulin pens as needed. The patient should stop taking her oral antihyperglycemics given that the patient's diabetic ketoacidosis is strongly suspicious for diabetic ketoacidosis associated with SGLT2 inhibitor use given the patient's relatively well controlled hemoglobin A1c on her previous regimen trial of oral antihyperglycemics or noninsulin therapies. At some point in the future, it would be reasonable, however at this time given the patient's relapsing diabetic ketoacidosis, she should be maintained on insulin at discharge and in the short time thereafter, the patient should with her primary care provider have followup BMP and magnesium. The patient should take her fingersticks 4 times daily including in the morning and with before each meal. The patient has been given a sliding scale insulin with which she was maintained in the hospital for control of her diabetes. The patient should be aware of possibility of hypoglycemia given her being recently started on insulin. The patient should follow up with her primary care provider in 1 week to discuss referral to a umbrella frame maker due to persistent tachycardia with concerns for ectopic atrial rhythm. The patient in an outpatient manner should have the consideration for an electrophysiologic study. The patient will be continued on her rhythm-control agents. The patient will be started on amlodipine for moderate hypertension while in the hospital. The patient should return to the hospital for alarming symptoms such as symptoms of DKA as well as other alarming symptoms such as chest pain, shortness of breath, intractable nausea, or passing out. The patient should engage in activity as tolerated and have a consistent carbohydrate diet. TIME SPENT: Approximately 75 minutes was spent on this discharge, 45 of which was spent [id number] with the patient obtaining history and physical and discussing treatment plan. IAN MOREJON [id number]/[facility] #: [id number] ESTER
== END 2018-03-12 15:20 | disposition home or self-care (01) | DRG 420 ==
LOC: ED 16:26 → ICU 19:01 → MED 03-10 14:53
PROVIDERS: ADMIT Student in an Organized Health Care Education/Training Program; ATTEND Internal Medicine
DX: E11.10 Type 2 diabetes mellitus with ketoacidosis without coma (principal); N17.9 Acute kidney failure, unspecified; I10 Essential (primary) hypertension; K21.9 Gastro-esophageal reflux disease without esophagitis; E78.5 Hyperlipidemia, unspecified; I45.10 Unspecified right bundle-branch block; Z79.4 Long term (current) use of insulin; R82.90 Unspecified abnormal findings in urine; R00.0 Tachycardia, unspecified; Z88.1 Allergy status to other antibiotic agents; Z83.3 Family history of diabetes mellitus; Z82.49 Family history of ischemic heart disease and other diseases of the circulatory system; Z87.891 Personal history of nicotine dependence; Z72.89 Other problems related to lifestyle
CPT/HCPCS: 36415; 71045; 80048; 80053; 80307; 80320; 81003; 81015; 82533; 82550; 82803; 83605; 83735; 84100; 84145; 84439; 84443; 84479; 84481; 84702; 85025; 85027; 86140; 86376; 87040; 87086; 87641; 93005; 99285; A9270-GY; G0480; G8978-GP-CH; G8979-GP-CH; G8980-GP-CH; J0360; J0696; J1644; J1815; J3475; J3480

== ENCOUNTER 2018-09-28 10:34 | Emergency (ER) | payer BC ==
[2018-09-28 11:18] VITALS: BP 122/79
--- NOTE | 2018-09-28 12:16 | UC ---
Ear Complaint HPI - HPI Summary HPI Summary: 47-year-old female presents with one-week history of bilateral ear itching, dry flaky skin, erythema, and occasional clear discharge from her right ear. Denies fever, chills, ear pain, hearing loss, tinnitus, vertigo, nasal congestion, sore throat, or cough. - History of Current Complaint Chief Complaint: UCEar Stated Complaint: BILATERAL EAR CONCERN Time Seen by Provider: 09/28/18 12:02 Hx Obtained From: Patient Hx Last Menstrual Period: Ablation Pain Intensity: 9 - Allergies/Home Medications Allergies/Adverse Reactions: Allergies Allergy/AdvReac Type Severity Reaction Status Date / Time azithromycin Allergy Rash Verified 03/09/18 17:12 Home Medications: Home Medications Semaglutide [Ozempic] 1 mg SQ WEEKLY 09/28/18 [History Confirmed 09/28/18] PMH/Surg Hx/FS Hx/Imm Hx Endocrine History: Diabetes, Dyslipidemia Cardiovascular History: Hypertension Respiratory History: Asthma GI/ History: Gastroesophageal Reflux - Surgical History Surgical History: Yes Surgery Procedure, Year, and Place: Uterine Ablation, ~ [place] - Family History Known Family History: Positive: Diabetes - maternal uncle. - Social History Occupation: Employed Full-time Lives: With Family Alcohol Use: Occasionally Substance Use Type: None Smoking Status (MU): Former Smoker Length of Time of Smoking/Using Tobacco: 1 - 1 1/2 PPD x 20 Years When Did the Patient Quit Smoking/Using Tobacco: 2003 - Immunization History Most Recent Influenza Vaccination: this year Most Recent Pneumonia Vaccination: never Review of Systems All Other Systems Reviewed And Are Negative: Yes Constitutional: Negative: Fever, Chills Skin: Positive: Other - See HPI Eyes: Negative: Drainage, Eye Redness ENT: Negative: Sore Throat, Ear Ache, Nasal Discharge, Sinus Congestion, Sinus Pain/Tenderness Respiratory: Negative: Shortness Of Breath, Cough Cardiovascular: Negative: Palpitations, Chest Pain Gastrointestinal: Negative: Abdominal Pain, Vomiting, Diarrhea, Nausea Genitourinary: Positive: Negative Musculoskeletal: Positive: Negative Neurological: Positive: Negative Is Patient Immunocompromised?: No Physical Exam - Summary Physical Exam Summary: HEAD: Atraumatic. normocephalic. EYES: Conjunctiva clear. No discharge. Vision is grossly intact. EARS: Patchy erythema with dry, flaky skin to the external ear lobe of the right ear. Mild erythema with dry, flaky skin bilateral external auditory canals. TM's opaque with good cone of light. Hearing grossly intact. NOSE: No nasal discharge. THROAT: Oral cavity and pharynx normal. No inflammation, swelling, exudate, or lesions. Teeth and gingiva in good general condition. NECK: Neck supple, non-tender without lymphadenopathy. CARDIAC: Normal S1 and S2. No S3, S4 or murmurs. Rhythm is regular. There is no peripheral edema, cyanosis or pallor. Extremities are warm and well perfused. Capillary refill is less than 2 seconds. LUNGS: Clear to auscultation without rales, rhonchi, wheezing or diminished breath sounds. ABDOMEN: Positive bowel sounds. Soft, nondistended, nontender. No guarding or rebound. No masses or hepatosplenomegally. MUSKULOSKELETAL: ROM intact to all extremities. No joint erythema or tenderness. Normal muscular development. Normal gait. SKIN: Skin normal color, texture and turgor. Triage Information Reviewed: Yes Vital Signs: Initial Vital Signs Temp 97.6 F 09/28/18 11:14 Pulse 89 09/28/18 11:14 Resp 16 09/28/18 11:14 BP 122/79 09/28/18 11:14 Pulse Ox 100 09/28/18 11:14 Vital Signs Reviewed: Yes Ear Complaint Course/Dx - Course Course Of Treatment: 47-year-old female presents with one-week history of bilateral ear itching, dry flaky skin, erythema, and occasional clear discharge from her right ear. Denies fever, chills, ear pain, hearing loss, tinnitus, vertigo, nasal congestion, sore throat, or cough. Afebrile. Vital signs stable. Exam reveals an adult female in no acute distress with patchy erythema with dry flaky skin to the external right earlobe and mild erythema and dry flaky skin of bilateral ear canals. TMs opaque with good cone of light bilaterally. Remainder of exam was unremarkable. I'll treat patient for an eczematoid otitis externa using acetic acid-hydrocortisone 5 drops both ears 4 times a day as well as some clobetasol ointment to the external right ear twice a day. She is to follow-up with her primary care provider in 7 days if symptoms do not improve. Anticipatory guidance and warning symptoms reviewed with patient. Verbalizes understanding and agrees with plan of care. - Differential Dx/Diagnosis Differential Diagnosis/HQI/PQRI: Cellulitis, Otitis Externa, Otitis Media Provider Diagnosis: Eczematoid otitis externa of both ears Discharge - Sign-Out/Discharge Documenting (check all that apply): Patient Departure All imaging exams completed and their final reports reviewed: No Studies - Discharge Plan Condition: Stable Disposition: HOME Prescriptions: Clobetasol 0.05% OINT* 1 applic TOPICAL BID #1 tube Hydrocortisone/Acetic Acid [Hydrocortison-Acetic Acid Soln] 5 drop OT QID #1 bottle Patient Education Materials: Eczema (ED), Otitis Externa (ED) Referrals: Ld Carter MD [Primary Care Provider] - 7 Days (If no improvement in symptoms) Additional Instructions: The dryness and itching of your ears appears to be from some eczema. Use clobetasol ointment to the affected areas of the outside of the ear twice a day. Do not use for more than 2 weeks. Use acetic acid-hydrocortisone ear drops to treat the dryness and itching of the ear canal. Instill 5 drops 4 times a day for 7 days. Follow up with your primary care provider in 7 days if no improvement in symptoms. Seek immediate medical attention if you develop fever greater than 100.5 F, the redness spreads, you have severe ear pain, loss of hearing, or any worsening of symptoms. - Billing Disposition and Condition Condition: STABLE Disposition: Home
== END 2018-09-28 12:35 | disposition home or self-care (01) ==
LOC: UCCORT 10:34
DX: H60.543 Acute eczematoid otitis externa, bilateral (principal); E11.9 Type 2 diabetes mellitus without complications; I10 Essential (primary) hypertension; J45.909 Unspecified asthma, uncomplicated; Z87.891 Personal history of nicotine dependence; Z88.1 Allergy status to other antibiotic agents; Z79.4 Long term (current) use of insulin
CPT/HCPCS: 99212; G0463

== ENCOUNTER 2018-10-22 09:28 | Emergency (ER) | payer BC ==
[2018-10-22 09:43] VITALS: BP 129/84
[2018-10-22] MEDS ORDERED: predniSONE TAB* 20 MG PO ONE (10:17)
--- NOTE | 2018-10-22 10:18 | UC ---
Skin Complaint HPI - HPI Summary HPI Summary: The patient is a 47-year-old female with a history of intermittent idiopathic urticaria. 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 She states that she has about 5 episodes of hives per year. She states that when her symptoms become as severe as they are now she usually requires a course of prednisone. She denies any recent URI symptoms. She has no new medicines or soaps or detergents. She denies any chest pain or shortness of breath. - History of Current Complaint Chief Complaint: UCRash Time Seen by Provider: 10/22/18 10:12 Stated Complaint: SKIN CONCERN Hx Obtained From: Patient Hx Last Menstrual Period: Ablation Onset/Duration: Gradual Onset, Lasting Days Timing: Constant Onset Severity: Mild Current Severity: Moderate Pain Intensity: 0 Pain Scale Used: 0-10 Numeric Location: Discrete Character: Pruritus, Hives, Redness Aggravating Factor(s): Nothing Alleviating Factor(s): Nothing Associated Signs & Symptoms: Positive: Rash. Negative: Nausea, Vomiting, Numbness, Thirst, Diaphoresis, Weakness, Pallor, Shivering, Difficulty Breathing , Fever, Chills, Cough, Wheezing, Chest Pain, Hoarseness, Throat Tightening, Abdominal Pain, Lightheadedness, Syncope, Drainage, Bruising, Tenderness, Red Streaks - Allergy/Home Medications Allergies/Adverse Reactions: Allergies Allergy/AdvReac Type Severity Reaction Status Date / Time azithromycin Allergy Rash Verified 10/22/18 09:38 Diabetic Medication Allergy DKA Uncoded 10/22/18 09:38 PMH/Surg Hx/FS Hx/Imm Hx Previously Healthy: Yes Endocrine History: Dyslipidemia Cardiovascular History: Hypertension Respiratory History: Asthma - Surgical History Surgical History: Yes Surgery Procedure, Year, and Place: Uterine Ablation, ~ [place] - Family History Known Family History: Positive: Hypertension, Diabetes - maternal uncle. - Social History Alcohol Use: Occasionally Substance Use Type: None Smoking Status (MU): Former Smoker Length of Time of Smoking/Using Tobacco: 1 - 1/2 PPD x 20 Years When Did the Patient Quit Smoking/Using Tobacco: 2003 - Immunization History Most Recent Influenza Vaccination: this year Most Recent Pneumonia Vaccination: never Review of Systems All Other Systems Reviewed And Are Negative: Yes Skin: Positive: Rash Eyes: Positive: Negative ENT: Positive: Negative Respiratory: Positive: Negative Cardiovascular: Positive: Negative Gastrointestinal: Positive: Negative Genitourinary: Positive: Negative Motor: Positive: Negative Neurovascular: Positive: Negative Musculoskeletal: Positive: Negative Neurological: Positive: Negative Psychological: Positive: Negative Physical Exam Triage Information Reviewed: Yes Appearance: Well-Appearing, No Pain Distress, Well-Nourished Vital Signs: Initial Vital Signs Temp 98 F 10/22/18 09:34 Pulse 88 10/22/18 09:34 Resp 18 10/22/18 09:34 BP 129/84 10/22/18 09:34 Pulse Ox 100 10/22/18 09:34 Vital Signs Reviewed: Yes Eyes: Positive: Conjunctiva Clear ENT: Positive: Hearing grossly normal, TMs normal, Uvula midline. Negative: Nasal congestion, Nasal drainage, Tonsillar swelling, Tonsillar exudate, Trismus , Muffled voice, Hoarse voice, Sinus tenderness Dental Exam: Normal Neck: Positive: Supple, Nontender, No Lymphadenopathy Respiratory: Positive: Lungs clear, Normal breath sounds, No respiratory distress, No accessory muscle use Cardiovascular: Positive: RRR, No Murmur Musculoskeletal: Positive: ROM Intact, No Edema Neurological: Positive: Alert Psychological Exam: Normal Skin Exam: Normal Skin: Positive: Other - diffuse urticaria Course/Dx - Diagnoses Provider Diagnosis: Urticaria, idiopathic Discharge - Sign-Out/Discharge Documenting (check all that apply): Post-Discharge Follow Up All imaging exams completed and their final reports reviewed: No Studies - Discharge Plan Condition: Stable Disposition: HOME Prescriptions: predniSONE [Deltasone 20 MG TAB] 20 - 40 mg PO DAILY #9 tab Patient Education Materials: Urticaria (ED) Referrals: Ld Carter MD [Primary Care Provider] - 4 Days (if not better) - Billing Disposition and Condition Condition: STABLE Disposition: Home
== END 2018-10-22 10:25 | disposition home or self-care (01) ==
LOC: UCCORT 09:28
DX: L50.1 Idiopathic urticaria (principal); I10 Essential (primary) hypertension; J45.909 Unspecified asthma, uncomplicated; Z88.1 Allergy status to other antibiotic agents; Z88.8 Allergy status to other drugs, medicaments and biological substances; Z87.891 Personal history of nicotine dependence
CPT/HCPCS: 99212; G0463; J7512

== ENCOUNTER 2019-09-14 11:55 | Emergency (ER) | payer BC ==
[2019-09-14 12:15] VITALS: BP 106/67
--- NOTE | 2019-09-14 12:17 | UC ---
Complaint Female HPI - HPI Summary HPI Summary: 48-year-old female presents with onset of urinary "pressure", frequency, and urgency yesterday. Denies fever, chills, abdominal pain, back or flank pain, nausea, vomiting, hematuria, vaginal discharge or vaginal itching. - History Of Current Complaint Stated Complaint: URINARY COMPLAINT Time Seen by Provider: 09/14/19 12:10 Hx Obtained From: Patient Hx Last Menstrual Period: Ablation - Allergies/Home Medications Allergies/Adverse Reactions: Allergies Allergy/AdvReac Type Severity Reaction Status Date / Time azithromycin Allergy Rash Verified 09/14/19 12:11 Diabetic Medication Allergy DKA Uncoded 09/14/19 12:11 Home Medications: Home Medications metFORMIN* [Glucophage 500 MG TAB *] 4 tab PO DAILY 09/14/19 [History Confirmed 09/14/19] PMH/Surg Hx/FS Hx/Imm Hx Endocrine History: Diabetes, Dyslipidemia Cardiovascular History: Hypertension GI/ History: Gastroesophageal Reflux - Surgical History Surgical History: Yes Surgery Procedure, Year, and Place: Uterine Ablation, ~ [place] - Family History Known Family History: Positive: Hypertension, Diabetes - maternal uncle. - Social History Occupation: Employed Full-time Lives: With Family Alcohol Use: Occasionally Substance Use Type: None Smoking Status (MU): Former Smoker Length of Time of Smoking/Using Tobacco: 1 - 1 1/2 PPD x 20 Years When Did the Patient Quit Smoking/Using Tobacco: 2003 - Immunization History Most Recent Influenza Vaccination: this year Most Recent Pneumonia Vaccination: never Review of Systems All Other Systems Reviewed And Are Negative: Yes Constitutional: Negative: Fever, Chills Respiratory: Positive: Negative Cardiovascular: Positive: Negative Gastrointestinal: Negative: Abdominal Pain, Vomiting, Nausea Genitourinary: Positive: Dysuria - See HPI, Frequency, Urgency. Negative: Hematuria, Vaginal/Penile Discharge, Abnormal Bleeding Musculoskeletal: Positive: Negative Neurological: Positive: Negative Is Patient Immunocompromised?: No Physical Exam - Summary Physical Exam Summary: GENERAL APPEARANCE: Well developed, well nourished, alert and cooperative, and appears to be in no acute distress. CARDIAC: Normal S1 and S2. No S3, S4 or murmurs. Rhythm is regular. There is no peripheral edema, cyanosis or pallor. Extremities are warm and well perfused. Capillary refill is less than 2 seconds. Peripheral pulses intact. LUNGS: Clear to auscultation without rales, rhonchi, wheezing or diminished breath sounds. ABDOMEN: Positive bowel sounds. Soft, nondistended, nontender. No guarding or rebound. No masses or hepatosplenomegally. No CVA tenderness. MUSKULOSKELETAL: ROM intact to all extremities. No joint erythema or tenderness. Normal muscular development. Normal gait. SKIN: Skin normal color, texture and turgor with no lesions or eruptions. Triage Information Reviewed: Yes Vital Signs Reviewed: Yes Complaint Female Dx - Course Course Of Treatment: 48-year-old female presents with onset of urinary "pressure", frequency, and urgency yesterday. Denies fever, chills, abdominal pain, back or flank pain, nausea, vomiting, hematuria, vaginal discharge or vaginal itching. Afebrile. Vital signs stable. Patient's exam was overall unremarkable. [id number] urinalysis showed 1+ leukocyte esterase. Urine culture is pending. Reviewed results with the patient. We discussed that based on her symptoms and urinalysis findings we will treat empirically for a possible urinary tract infection with Bactrim DS 1 tablet twice daily for 3 days. She is to follow-up with her primary care provider in 3 days if symptoms are not improving. Symmetric Warning symptoms were reviewed with the patient. Verbalizes understanding and agrees with plan of care. - Differential Dx/Diagnosis Differential Diagnosis/HQI/PQRI: Ureteral Stone, Urinary Tract Infection, Other - Vulvovaginitis Provider Diagnosis: UTI (urinary tract infection) Discharge ED - Sign-Out/Discharge Documenting (check all that apply): Patient Departure All imaging exams completed and their final reports reviewed: No Studies - Discharge Plan Condition: Stable Disposition: HOME Prescriptions: Sulfamethox/Trimethoprim DS* [Bactrim DS 800/160 TAB*] 1 tab PO BID #6 tab Patient Education Materials: Urinary Tract Infection in Women (ED) Referrals: Ld Carter MD [Primary Care Provider] - 3 Days (If no improvment in symptoms.) Additional Instructions: Your urine test in the clinic today is suggestive of a urinary tract infection. We will start you on an antibiotic to treat for the infection. We will also send a urine culture today to see what bacteria grow out and make sure the antibiotic you were prescribed is appropriate to treat the infection. It will take 48-72 hours to get these results. We will contact you if there is any change in your treatment plan. Start Bactrim DS 1 tab twice a day for 3 days. Drink plenty of fluids. To help prevent urinary tract infections: 1) Be sure to wipe from front to back. 2) Urinate immediately after any sexual intercourse. 3) Avoid taking bubble baths. Follow up with your primary care provider in 3 days if symptoms persist. Seek immediate medical attention in the emergency room if you develop fever greater than 100.5 F, have severe abdominal pain, persistent vomiting, or any worsening of symptoms. - Billing Disposition and Condition Condition: STABLE Disposition: Home
--- NOTE | 2019-09-16 07:09 | UC ---
- Progress Note Progress Note: + klebsiella on Bactrim await sensitivity -no change yvette Course/Dx - Diagnoses Provider Diagnoses: UTI (urinary tract infection) Discharge ED - Sign-Out/Discharge Documenting (check all that apply): Post-Discharge Follow Up All imaging exams completed and their final reports reviewed: No Studies - Discharge Plan Condition: Stable Disposition: HOME Prescriptions: Sulfamethox/Trimethoprim DS* [Bactrim DS 800/160 TAB*] 1 tab PO BID #6 tab Patient Education Materials: Urinary Tract Infection in Women (ED) Referrals: Ld Carter MD [Primary Care Provider] - 3 Days (If no improvment in symptoms.) Additional Instructions: Your urine test in the clinic today is suggestive of a urinary tract infection. We will start you on an antibiotic to treat for the infection. We will also send a urine culture today to see what bacteria grow out and make sure the antibiotic you were prescribed is appropriate to treat the infection. It will take 48-72 hours to get these results. We will contact you if there is any change in your treatment plan. Start Bactrim DS 1 tab twice a day for 3 days. Drink plenty of fluids. To help prevent urinary tract infections: 1) Be sure to wipe from front to back. 2) Urinate immediately after any sexual intercourse. 3) Avoid taking bubble baths. Follow up with your primary care provider in 3 days if symptoms persist. Seek immediate medical attention in the emergency room if you develop fever greater than 100.5 F, have severe abdominal pain, persistent vomiting, or any worsening of symptoms. - Billing Disposition and Condition Condition: STABLE Disposition: Home
== END 2019-09-14 12:39 | disposition home or self-care (01) ==
LOC: UCCORT 11:55
DX: N39.0 Urinary tract infection, site not specified (principal); E11.9 Type 2 diabetes mellitus without complications; I10 Essential (primary) hypertension; Z79.84 Long term (current) use of oral hypoglycemic drugs; Z87.891 Personal history of nicotine dependence; Z88.8 Allergy status to other drugs, medicaments and biological substances; Z88.1 Allergy status to other antibiotic agents
CPT/HCPCS: 81003; 87077; 87086; 87186; 99212; G0463